=== PATIENT | female | born 1990 | race Caucasian/White ===

== ENCOUNTER 2019-02-08 22:46 | Emergency (ER) | payer SELFPAY ==
[2019-02-09] MEDS ORDERED: METHYLPREDNISOLONE INJ 125 MG/2 ML SDV IM ONE (02:44)
--- NOTE | 2019-02-09 03:00 | ER Document Report ---
HPI - HPI Patient complains to provider of: skin rash Time Seen by Provider: 02/09/19 02:36 Pain Level: 2 Context: Patient is a 28-year-old female that comes to the emergency department for chief complaint of a rash, rash started on the abdomen and spread, now the rash is also on her shoulders. There is no rash on the back or extremities. She denies any recent medications or obvious exposures. Rash is very itchy, she is taking Benadryl for this. She denies asthma, eczema, or similar problem. She states she has been bitten by a lot of bugs outside recently but these are distinctly different on her legs. She denies any daily medications. She denies . - REPRODUCTIVE Reproductive: DENIES: : Past Medical History - General Information source: Patient - Social History Smoking Status: Never Smoker Frequency of alcohol use: None Drug Abuse: None Lives with: Family Family History: Reviewed & Not Pertinent - Medical History Medical History: Negative Surgical Hx: Negative - Immunizations Immunizations up to date: Yes Hx Diphtheria, Pertussis, Tetanus Vaccination: Yes Vertical Provider Document - CONSTITUTIONAL General Appearance: WD/WN, No Apparent Distress - INFECTION CONTROL TRAVEL OUTSIDE OF THE [place] IN LAST 30 DAYS: No - HEENT HEENT: Atraumatic, Normal ENT Exam, Normocephalic - NECK Neck: Normal Inspection - RESPIRATORY Respiratory: Breath Sounds Normal, No Respiratory Distress - CARDIOVASCULAR Cardiovascular: Regular Rate, Regular Rhythm - GI/ABDOMEN Gastrointestinal: Abdomen Soft, Abdomen Non-Tender - BACK Back: Normal Inspection - MUSCULOSKELETAL/EXTREMETIES Musculoskeletal/Extremeties: MAEW, FROM, Non-Tender - NEURO Level of Consciousness: Awake, Alert, Appropriate Motor/Sensory: No Motor Deficit, No Sensory Deficit - DERM Integumentary: Rash - There is a rash mainly over the abdomen, questionably over the left shoulder area. Rashes scattered, erythematous, there are a few scattered areas suggestive of small vesicles, there are also dried out and excoriated areas. No pustules, induration, fluctuance, tenderness, or bulla. Course - Re-evaluation Re-evalutation: Abdomen has the appearance of eczema with severe flare, I do not see evidence of yeast infection, evidence of secondary cellulitis, area does not suggest shingles as it crosses the midline, area is itchy but not tender. I do not see any evidence of necrotizing fasciitis. Discussed with patient in detail. Decision was made to treat with steroids, topical and oral, because of the extent of the rash and the patient's discomfort from the itching. Discussed dermatology follow-up although I did discuss the downside of using steroids with this, discussed primary care follow-up, discussed return precautions in detail. Patient states understanding and agreement. - Vital Signs Vital signs: Temp Pulse Resp BP Pulse Ox 98.8 F 84 22 H 149/85 H 98 02/08/19 22:56 02/08/19 22:56 02/08/19 22:56 02/08/19 22:56 02/08/19 22:56 Discharge - Discharge Clinical Impression: Rash Condition: Stable Disposition: HOME, SELF-CARE Additional Instructions: Your evaluation is consistent with atopic dermatitis although the exact cause is uncertain. No secondary infection or other concerning findings noted at this time. I recommend that you apply the cream over the abdomen areas that are the worst until this starts to improve and then stop. Only use for the minimum amount necessary. Take the prednisone as prescribed. Take [id number] antihistamine such as Benadryl or cetirizine to help with itching. Follow-up with primary care and with the dermatology referral. Return if you worsen including developing pain, spreading redness, fever/chills, or any other concerning or worsening symptoms. Prescriptions: Betamethasone Valerate [Valisone 0.1 % Cream 15 gm] 15 applic TP ASDIR PRN #2 tube PRN Reason: Prednisone [Deltasone 20 mg Tablet] 3 tab PO DAILY 5 Days tablet Forms: Return to Work Referrals: MICHELE YOUNG DO [ACTIVE STAFF] - Follow up as needed
[2019-02-09 04:18] VITALS: BP 134/78
== END 2019-02-09 04:17 | disposition home or self-care (01) ==
LOC: ER 22:46
DX: R21 Rash and other nonspecific skin eruption (principal); L29.8 Other pruritus
CPT/HCPCS: 99282; 96372; J2930

== ENCOUNTER 2019-02-22 14:19 | Emergency (ER) | payer SELFPAY ==
[2019-02-22 14:33] VITALS: BP 148/88
--- NOTE | 2019-02-22 15:13 | ER Document Report ---
ED Skin Rash/Insect Bite/Abscs - General Chief Complaint: Rash Stated Complaint: POSSIBLE RASH Time Seen by Provider: 02/22/19 14:46 Mode of Arrival: Ambulatory Information source: Patient Notes: 28-year-old female presented to ED for complaint of rash to the abdomen and torso. She states she had a similar rash on the and during came to the emergency room was given steroids and cream. She states she could not follow-up with the inspector of weights and measures because she does not have insurance. She states the rash got better and then got much worse. 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 She states she took all of her steroids as prescribed. She came back for possible steroids. I have explained to her that is not appropriate to continue given steroids until she is followed up with the inspector of weights and measures on [address]. I have given her the name and number of local inspector of weights and measures. Will treat patient's rash with antibiotic cream given instructions on Benadryl and Pepcid and other treatments for the rash. Patient does not have any signs and symptoms of an infection. She is nontoxic in appearance. TRAVEL OUTSIDE OF THE [place] IN LAST 30 DAYS: No - HPI Patient complains to provider of: Skin rash/lesion Onset: Other - She had the same rash in January got better and came back Onset/Duration: Intermittent Quality of pain: Other Severity: Mild Pain Level: 1 Skin Character: Erythema, Rash Quality of rash: Painful Identify cause: No Exacerbated by: Denies Relieved by: Denies Similar symptoms previously: Yes Recently seen / treated by doctor: Yes - Related Data Allergies/Adverse Reactions: No Known Allergies Allergy (Verified 02/22/19 14:30) Past Medical History - General Information source: Patient - Social History Smoking Status: Never Smoker Chew tobacco use (# tins/day): No Frequency of alcohol use: None Drug Abuse: None Lives with: Family Family History: Reviewed & Not Pertinent Patient has suicidal ideation: No Patient has homicidal ideation: No - Past Medical History Cardiac Medical History: Reports: None Pulmonary Medical History: Reports: None EENT Medical History: Reports: None Neurological Medical History: Reports: None Endocrine Medical History: Reports: None Renal/ Medical History: Reports: None Malignancy Medical History: Reports: None GI Medical History: Reports: None Musculoskeletal Medical History: Reports None Skin Medical History: Reports None Psychiatric Medical History: Reports: None Traumatic Medical History: Reports: None Infectious Medical History: Reports: None Past Surgical History: Reports: Hx Oral Surgery - wisdom, Hx Tonsillectomy - Immunizations Immunizations up to date: Yes Hx Diphtheria, Pertussis, Tetanus Vaccination: Yes Review of Systems - Review of Systems Constitutional: No symptoms reported EENT: No symptoms reported Cardiovascular: No symptoms reported Respiratory: No symptoms reported Gastrointestinal: No symptoms reported Genitourinary: No symptoms reported Female Genitourinary: No symptoms reported Musculoskeletal: No symptoms reported Skin: Rash Hematologic/Lymphatic: No symptoms reported Neurological/Psychological: No symptoms reported -: Yes All other systems reviewed and negative Physical Exam - Vital signs Vitals: Temp Pulse Resp BP Pulse Ox 98.5 F 110 H 18 148/88 H 98 02/22/19 14:32 02/22/19 14:32 02/22/19 14:32 02/22/19 14:32 02/22/19 14:32 Interpretation: Normal - General General appearance: Appears well, Alert - HEENT Head: Normocephalic, Atraumatic Eyes: Normal Pupils: PERRL - Respiratory Respiratory status: No respiratory distress Chest status: Nontender Breath sounds: Normal Chest palpation: Normal - Cardiovascular Rhythm: Regular Heart sounds: Normal auscultation Murmur: No - Abdominal Inspection: Normal Distension: No distension Bowel sounds: Normal Tenderness: Nontender Organomegaly: No organomegaly - Back Back: Normal, Nontender - Extremities General upper extremity: Normal inspection, Nontender, Normal color, Normal ROM, Normal temperature General lower extremity: Normal inspection, Nontender, Normal color, Normal ROM, Normal temperature, Normal weight bearing. No: Lexis's sign - Neurological Neuro grossly intact: Yes Cognition: Normal Orientation: AAOx4 Avi Coma Scale Eye Opening: Spontaneous Avi Coma Scale Verbal: Oriented [place] Coma Scale Motor: Obeys Commands [place] Coma Scale Total: 15 Speech: Normal Motor strength normal: LUE, RUE, LLE, RLE Sensory: Normal - Psychological Associated symptoms: Normal affect, Normal mood - Skin Skin Temperature: Warm Skin Moisture: Dry Skin Color: Normal Skin irregularity: Rash Location of irregularity: Abdomen Character of irregularity: Maculopapular, Erythematous Irregularity with: Tenderness - Itchy Course - Re-evaluation Re-evalutation: 02/22/19 17:10 Patient was given instructions for rash as well as prescription for happy hiney cream to help with this rash. Patient was instructed to please follow-up with dermatology says they can further evaluate this rash. - Vital Signs Vital signs: Temp Pulse Resp BP Pulse Ox 98.5 F 110 H 18 148/88 H 98 02/22/19 14:32 02/22/19 14:32 02/22/19 14:32 02/22/19 14:32 02/22/19 14:32 Discharge - Discharge Clinical Impression: Rash to abdomen Condition: Stable Disposition: HOME, SELF-CARE Additional Instructions: You were seen today for a rash to the abdomen. Exact cause of this rash is uncertain. It does not appear to be any bacterial infection at this time. I have recommended happy hiney cream to be applied to the area. I have given you a prescription for the happy hiney cream. You was seen for this rash on 02/08/2019 and were recommended that you follow-up with a inspector of weights and measures. He still need to follow-up with the inspector of weights and measures. ACID-SUPPRESSING MEDICATION: You have a prescription for medicine which reduces the stomach's secretion of acid. Examples include Zantac, Tagament, and Pepcid. These drugs are often used to allow healing of ulcers or esophagitis. They may be needed to prevent recurrence of ulcers in some patients, or to prevent damage from acid reflux in the esophagus. Take all medication as prescribed, even after the pain is gone. Regular antacids may be added as needed if you have symptoms while taking this medicine. These medications sometimes are prescribed for allergic reactions because they have anti-histaminic effects and relieve the rash and itching of the reaction. There are usually no side effects from this medication. But, in rare cases and particularly in the elderly, serious problems can occur. Contact your doctor if there is fever, rash, hallucinations, confusion, or unusual bruising. Contact your doctor at once if you develop lightheadedness, black or bloody stool, or bloody vomitus. ANTIHISTAMINES: An antihistamine has been given and/or prescribed to control your symptoms. Antihistamines are used for many reasons, including itching, watering eyes, runny nose, allergic swelling, hives, and insect stings. Antihistamines may cause drowsiness, especially with the first dose. Do not operate machinery or drive while under the effects of the medication. Other common side effects include dry mouth and eyes. In older persons, antihistamines can occasionally cause urinary retention, constipation, and trouble focusing the eyes. Do not combine the medication with alcohol, or with any other medication without talking to your doctor. USE OF DIPHENHYDRAMINE: The use of diphenhydramine (Benadryl) has been recommended to control allergic symptoms. The 25 mg strength is available over- the-counter, as well as the elixir. This antihistamine is used for many symptoms. It's useful for itching, watering eyes and nose, allergic swelling, hives, and insect stings. The medication can be repeated four times daily. Age Elixir (12.5 mg/tsp) 25 mg pill 2-3 yr 1/2 tsp 4-8 yr 1 tsp 9-14 yr 2 tsp one tab adult 1-2 tabs Antihistamines may cause drowsiness, especially with the first dose. Do not operate machinery or drive while under the effects of the medication. Do not combine the medication with alcohol, or with any other medication without talking to your doctor. FOLLOW-UP CARE: If you have been referred to a physician for follow-up care, call the physicians office for an appointment as you were instructed or within the next two days. If you experience worsening or a significant change in your symptoms, notify the physician immediately or return to the Emergency Department at any time for re-evaluation. [facility] 5.0 (4) [facility] [address] [facility] [address] Dr. Fabrizio Verduzco, DO 2.7 (12) [facility] [address] [facility], [facility] 3.1 (21) [facility] [address] Prescriptions: Miscellaneous Medication [Happy Hiney Cream] 1 applic TOP ASDIR PRN #30 gm PRN Reason: Forms: Return to Work
== END 2019-02-22 15:17 | disposition home or self-care (01) ==
LOC: ER 14:19
DX: R21 Rash and other nonspecific skin eruption (principal)
CPT/HCPCS: 99282